=== PATIENT | male | born 1990 | race African-American/Black ===

== ENCOUNTER 2017-05-23 02:08 | Emergency (ER) | payer OTHER ==
[~2017-05-23] VITALS: Ht 180.3 cm; Wt 72.5 kg
[2017-05-23 02:11] VITALS: BP 134/83; PULSE 72; RESP 15; TEMP 98.5; O2SAT 100
[2017-05-23] MEDS ORDERED: DICL75TA PO (03:07)
[2017-05-23] MEDS ORDERED: CYCL1TAB29 PO (03:07)
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
[2017-05-23] MEDS ORDERED: CYCLOBENZAPRINE HCL 10 MG TAB PO ONE (03:15)
[2017-05-23] MEDS ORDERED: NAPROXEN 500 MG TAB PO ONE (03:15)
== END 2017-05-23 03:28 | disposition home or self-care (01) ==
LOC: NEPD 02:08
DX: S40.812A Abrasion of left upper arm, initial encounter (principal); M54.2 Cervicalgia; M54.5 Low back pain; V43.52XA Car driver injured in collision with other type car in traffic accident, initial encounter; Y92.414 Local residential or business street as the place of occurrence of the external cause
CPT/HCPCS: 99284